=== PATIENT | female | born 2000 | race African-American/Black ===

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

== ENCOUNTER 2022-03-11 17:21 | Observation (INO) | payer MEDICAID, SELFPAY ==
[2022-03-11 19:04] VITALS: BMI 26.6
--- NOTE | 2022-03-11 19:04 | OBADM ---
This patient, Zenia Nails, admitted to the OB room Labor/Delivery/Recovery 105 for observation. Patient/family oriented to hospital policies and general routines including ID bracelet, bed and alarms, visiting hours, pain management, procedures, bathroom and other care routines, personal items, smoking policy, room service/diet, and visiting hours. Patient/Family are encouraged to report perceived risks to care and to ask questions if they do not understand what they are told or what they should do.
--- NOTE | 2022-04-02 13:10 | PM.OBTRLD ---
OB - Triage/Final Diagnosis Visit Information Comments/Additional reasons for admission: I have assessed the risk for this patient, Zenia Nails, and determined that she would benefit from observation care. Final Diagnosis (1) Spotting: Code(s): N92.0 - Excessive and frequent menstruation with regular cycle Status: Acute
== END 2022-03-11 19:23 | disposition home or self-care (01) ==
PROVIDERS: Admitting Provider Obstetrics & Gynecology; Visit Provider Obstetrics & Gynecology
DX: O26.853 Spotting complicating pregnancy, third trimester (principal); Z3A.36 36 weeks gestation of pregnancy
CPT/HCPCS: G0378; G0379

== ENCOUNTER 2022-03-20 12:55 | Outpatient (RCR) | payer MEDICAID, SELFPAY ==
[2022-03-13 14:21] VITALS: BMI 24.2
--- NOTE | 2022-03-13 14:22 | LDADM ---
This patient, Zenia Nails, was admitted to on at 13:39. Plans for labor, pain management and were discussed with patient. Patient/family oriented to hospital policies and general routines including ID bracelet, bed and alarms, visiting hours, pain management, procedures, bathroom and other care routines, personal items, smoking policy, room service/diet and guest tray routines, infant security routines, and visiting hours. Patient/Family are encouraged to report perceived risks to care and to ask questions if they do not understand what they are told or what they should do. See OBIX for further documentation.
[2022-03-13 14:27] VITALS: BP 114/73; PULSE 77
[2022-03-15 20:45] VITALS: BP 110/63; PULSE 95
--- NOTE | ~2022-03-20 | US_ITS ---
US OB BPP wo non-stress DATE: 03/13/2022 14:55 INDICATION: Variable decelerations in office TECHNIQUE: Real-time imaging and Doppler analysis COMPARISON: None FINDINGS: Live guan intrauterine gestation, fetus in longitudinal lie, breech presentation with heart rate of 148 bpm. Anterior placenta. Subjectively normal amount of amniotic fluid. BIOPHYSICAL PROFILE reported by motorsports technician: breathin out of 2 movement: 2 out of 2 tone: 2 out of 2 Amniotic fluid pocket: 2 out of 2 Total score: 8 out of 8 IMPRESSION: Normal biophysical profile score of 8 out of 8 Reviewed, dictated and finalized at Location [facility]. Reviewed, dictated and finalized at location B.
[2022-03-20 15:00] VITALS: BP 116/76; PULSE 95
[2022-03-20 15:15] LABS: Appearance Urine Clear (Clear); Bilirubin Urine Negative (Negative); Blood Urine Negative (Negative); Color Urine Yellow (Yellow); Glucose Urine UA Negative (Negative); Ketones Urine Trace mg/dL (Negative); Leukocyte Esterase Ur Negative LEU/UL (NEGATIVE); Nitrate Urine Negative (Negative); Protein Urine Negative (Negative); Urobilinogen Urine 0.2 mg/dL (<2.0)
[2022-03-20 15:23] LABS: RBC Urine 0-2 /hpf (0-2); Squamous Epithelial Cell Urine Rare /hpf (Few); WBC Urine 0-3 /hpf (0-3)
[2022-03-20 15:25] LABS: Add Urine Microscopic? YES
== END 2022-05-27 15:36 | disposition home or self-care (01) ==
LOC: ANHOBOP 12:55
PROVIDERS: Visit Provider Advanced Practice Midwife
DX: O36.8330 Maternal care for abnormalities of the fetal heart rate or rhythm, third trimester, not applicable or unspecified (principal); Z3A.36 36 weeks gestation of pregnancy
CPT/HCPCS: 59025; 76819; 81001; 84112

== ENCOUNTER 2022-03-24 16:32 | Outpatient (CLI) | payer MEDICAID, SELFPAY ==
[2022-03-24 17:28] VITALS: TEMP 36.6
== END 2022-03-24 17:35 | disposition home or self-care (01) ==
LOC: ANHOBOP 17:42 → ANHLDR 17:45
PROVIDERS: Visit Provider Obstetrics & Gynecology
DX: O41.8X90 Other specified disorders of amniotic fluid and membranes, unspecified trimester, not applicable or unspecified (principal); Z3A.00 Weeks of gestation of pregnancy not specified
CPT/HCPCS: 84112; 99199

== ENCOUNTER 2023-07-21 08:32 | Emergency (ER) | payer OTHER, SELFPAY ==
[2023-07-21 08:33] VITALS: BP 124/62; PULSE 103; RESP 16; TEMP 36.9; O2SAT 100
--- NOTE | 2023-07-21 09:25 | ED.GENADULT ---
HPI - General Adult General Chief complaint: Unspecified Stated complaint: requesting strep swab Time Seen by Provider: 07/21/23 08:38 History of Present Illness HPI narrative: Patient is a 23-year-old female who presents ER with concerns for strep throat. She woke up this morning with sore throat and discomfort along the right side of her neck. No difficulty breathing or swelling. No fevers chills or sweats. No productive cough. No sinus congestion. She reports history of recurrent strep infections. Related Data Home Medications Medication Instructions Recorded Confirmed ferrous sulfate 325 mg (65 mg 325 mg PO BID 03/10/22 03/11/22 iron) tablet prenat.vits,delphine,ozl-eyss-ltchm 1 tablet PO DAILY 03/10/22 03/11/22 Allergies Allergy/AdvReac Type Severity Reaction Status Date / Time No Known Allergies Allergy Verified 07/21/23 08:51 Review of Systems Constitutional: Constitutional: Reports no additional constitutional complaints ENT: Reports system reviewed and no additional complaints, except as documented Respiratory: Respiratory: Reports no additional respiratory complaints [facility] Past Medical History Medical History (Updated 07/21/23 @ 10:03 by Bipin Dan MD) Healthy female adult Family History Family History (Updated 03/10/22 @ 13:46 by Genie Cnotreras RN) Other Patient denies significant medical history Social History Social History Smoking status: Never smoker Substance use: never Other substance usage details: Tested positive for THC but denies use at interview Gender identity (if verbalized by the patient): Female Spiritual care concerns: No Exam Narrative: GENERAL: Well-appearing, well-nourished, and in no acute distress. HEAD: Normocephalic, atraumatic. ENT: Mucous membranes moist. normal appearing posterior oropharynx without tonsillar hypertrophy or exudate. Uvula midline and nonedematous. NECK: Supple. Mild discomfort anterior cervical chain lymph nodes near the angle of mandible. CHEST: Clear to auscultation. No respiratory distress. HEART: Regular rate and rhythm. Normal peripheral pulses. EXTREMITIES: Normal range of motion. No edema. NEURO: Alert and oriented x3. PSYCH: Normal mood and affect. Course Course Emergency Course: Strep negative. Discharge home with supportive care. Vital Signs Vital signs: Vital Signs Temperature 98.5 F 07/21/23 08:33 Pulse Rate 103 H 07/21/23 08:33 Respiratory Rate 16 07/21/23 08:33 Blood Pressure 124/62 07/21/23 08:33 Pulse Oximetry 100 07/21/23 08:33 Temperature 98.5 F 07/21/23 08:33 Pulse Rate 103 H 07/21/23 08:33 Respiratory Rate 16 07/21/23 08:33 Blood Pressure 124/62 07/21/23 08:33 Pulse Oximetry 100 07/21/23 08:33 Medical Decision Making Vital Signs Vital Signs: Vital Signs Temperature 98.5 F 07/21/23 08:33 Pulse Rate 103 H 07/21/23 08:33 Respiratory Rate 16 07/21/23 08:33 Blood Pressure 124/62 07/21/23 08:33 Pulse Oximetry 100 07/21/23 08:33 Temperature 98.5 F 07/21/23 08:33 Pulse Rate 103 H 07/21/23 08:33 Respiratory Rate 16 07/21/23 08:33 Blood Pressure 124/62 07/21/23 08:33 Pulse Oximetry 100 07/21/23 08:33 Lab Data Labs: Lab Results 07/21/23 Range/Units 08:55 Group A Strep (PCR) Not detected (Negative) Discharge Plan Discharge Clinical Impression: Acute viral syndrome Patient Disposition: Home, Self-Care Condition: Stable Instructions: Viral Syndrome (ED) Additional Instructions: As discussed you have a viral illness. Unfortunately there are no specific medications we can give you to make the illness end faster. Antibiotics do not work for viral illnesses. However, you can take Acetaminophen or Ibuprofen to help with fevers and pain. Stay well hydrated and rested. Return to the emergency department i
[2023-07-21 09:40] LABS: Strep Group A RT-PCR NOT DETECTED (Negative)
[2023-07-21 10:11] VITALS: BP 124/73; PULSE 97; RESP 16; TEMP 37.3; O2SAT 98
== END 2023-07-21 10:13 | disposition home or self-care (01) ==
PROVIDERS: Emergency Provider Emergency Medicine
DX: B34.9 Viral infection, unspecified (principal)
CPT/HCPCS: 87651; 99283